=== PATIENT | female | born 1945 | race Caucasian/White ===

== ENCOUNTER 2017-07-14 18:06 | Inpatient (IN) | payer MEDICARE, BC ==
[2017-07-14] MEDS ORDERED: Meropenem 1 GM in Sodium Chloride 0.9% 100 ML IVPB ONE (18:45)
[2017-07-14 19:30] LABS: CKMB 4.3 ng/mL (0-6.6); Troponin I 0.029 ng/mL (< 0.028)
[2017-07-14] MEDS ORDERED: Ondansetron HCl/PF 4 MG/2 ML Vial IVP PRN ×2 (21:51→22:24)
[2017-07-14] MEDS ORDERED: Ondansetron ODT 4 MG TAB SL PRN (21:51)
[2017-07-14] MEDS ORDERED: Sodium Chloride 0.9% 1,000 ML IV SCH (22:00)
[2017-07-14] MEDS ORDERED: Acetaminophen 325 MG TAB PO PRN (22:24)
[2017-07-14] MEDS ORDERED: Guaifenesin DM 100-10/5 ML UDCUP PO PRN (22:24)
[2017-07-14] MEDS ORDERED: Albuterol Sulfate 1.25 MG/3 ML NEB NEB PRN (22:24)
[2017-07-14] MEDS ORDERED: Ondansetron ODT 4 MG TAB PO PRN (22:24)
[2017-07-14] MEDS ORDERED: Cefepime 2 GM in Sodium Chloride 0.9% 100 ML IVPB SCH (22:24)
[2017-07-14] MEDS ORDERED: HYDROcodone/Acetaminophen 5/325 mg Tablet PO PRN (22:24)
[2017-07-14] MEDS ORDERED: ALPRAZolam 0.5 MG TAB PO SCH (22:45)
[2017-07-14] MEDS ORDERED: guaiFENesin ER 600 MG TAB PO SCH (22:45)
[2017-07-14] MEDS ORDERED: Famotidine 20 MG TAB PO SCH (22:45)
[2017-07-14] MEDS ORDERED: Gabapentin 300 MG CAP PO SCH (23:00)
[2017-07-14] MEDS ORDERED: Cefepime 2 GM, Syringe 2.5 ML in Sodium Chloride 0.9% 10 ML SLOW IVP SCH (23:00)
[2017-07-14] MEDS: Sodium Chloride 0.9% 1,000 ML IV SCH (23:22)
[2017-07-15] MEDS: traZODone HCl 50 MG TAB PO PRN ×2 (00:24→20:25)
[2017-07-15 01:20] VITALS: BMI 26.8
[2017-07-15] MEDS: Meropenem 1 GM in Sodium Chloride 0.9% 100 ML IVPB SCH ×3 (03:48→22:03)
[2017-07-15] MEDS ORDERED: Meropenem 1 GM in Sodium Chloride 0.9% 100 ML IVPB SCH (04:00)
[2017-07-15 06:12] LABS: Band 22 % (5-11); Hemoglobin 10.4 g/dL (12.0-16.0); Lymphocytes 2 % (21-51); MDiff Complete? YES; Mean Corpuscular HGB CONC 33.7 g/dL (32.0-36.0); Mean Platelet Volume 7.7 fL (7.4-10.4); Metamyelocyte 1 % (0-0); Monocytes 3 % (0-10); Neutrophil 71 % (42-75); Platelet Count 142 thou/uL (130-400); RBC Distribution Width 12.6 % (11.5-14.5); Red Blood Cell (RBC) Count 3.06 mill/uL (4.20-5.40); White Blood Cell (WBC) Count 10.8 thou/uL (4.8-10.8)
[2017-07-15 06:23] LABS: ALT (SGPT) 19 U/L (8-55); AST (SGOT) 25 U/L (5-34); Albumin 2.9 g/dL (3.4-4.8); Alkaline Phosphatase 89 U/L (40-150); Anion Gap 12 mmol/L (10-20); BUN (Urea Nitrogen) 19 mg/dL (9.8-20.1); Bilirubin, Total 0.6 mg/dL (0.2-1.2); Calc. Creatinine Clearance 61 mL/min (70-130); Calcium 7.9 mg/dL (7.8-10.44); Carbon Dioxide 17 mmol/L (23-31); Chloride 111 mmol/L (98-107); Estimated GFR-MDRD 70; Globulin 2.5 g/dL (2.4-3.5); Glucose 72 mg/dL (83-110); Magnesium 1.5 mg/dL (1.6-2.6); Potassium 3.6 mmol/L (3.5-5.1); Protein, Total 5.4 g/dL (6.0-8.3); Sodium 136 mmol/L (136-145)
--- NOTE | 2017-07-15 08:38 | RAD ---
PORTABLE CHEST: Date: 07/15/17 HISTORY: Sepsis and cough. COMPARISON: 07/14/17. FINDINGS: There are increased left perihilar markings when compared to the earlier exam. I cannot exclude devel oping perihilar pneumonitis. No focal consolidation. No other evidence of infiltrate. There is a righ t jugular catheter which has tip overlying the SVC and appears in adequate position. IMPRESSION: Question increased left perihilar markings when compared to the earlier film. Continued follow-up rec ommended. POS: [facility]
--- NOTE | 2017-07-15 08:44 | HP ---
DATE OF ADMISSION: 07/14/2017 TIME OF SERVICE: 1930. PRIMARY CARE PHYSICIAN: Dr. Clarita Morrison. CHIEF COMPLAINT: Transferred from an outside facility for sepsis. HISTORY OF PRESENT ILLNESS: Ms. Quiroga is a 72-year-old female with past medical history of brain aneurysm requiring recurrent procedures starting back in 1999. She developed left-sided hemiplegia and contractures because of that. She was presented to the [facility] today for temperatures at home of 103.7, confirmed 102 to 102.9 there. She had nausea and vomiting for about 48 hours prior to presentation that began abruptly and continued to have diarrhea, though it is slowed down. She was seen in the emergency department, she was given 2 liters of IV fluids at [facility], levofloxacin and meropenem and transferred here. Here the findings were confirmed, we were called to admit. Currently, patient is tachycardic, but regular. She has got a systolic pressure in the mid 90s, which she says is her baseline. She has some shortness of breath and congestion for the last few days and has been using nebulizer treatments and Mucinex at home. She denies any shaking, chills, or rigors until today. She denies any nausea today, but did have when her diarrheal illness initially started. She had no chest pain, no GI bleeding. PAST MEDICAL HISTORY: 1. Asthma. 2. Recurrent urinary tract infections last in 02/2016. Last few germs have been E. coli or gram-negative that had been minimally resistant. 3. 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 PAST SURGICAL HISTORY: 1. Aneurysmal coiling in 1999. 2. Aneurysmal clip in 2001. 3. LACING CUTTER shunt and revision x3, the last revision in 2006. 4. Hysterectomy. 5. Bilateral cataract replacement. HOME MEDICATIONS: 1. Gabapentin 300 mg p.o. q.p.m. 2. Xanax 0.5 mg p.o. at bedtime. 3. Levothyroxine 88 mcg daily. 4. Zofran not taking any more. 5. Omeprazole 20 mg p.o. daily. 6. Melatonin, she is not taking any more. 7. Mucinex as needed. 8. Trazodone 100 mg p.o. at bedtime. 9. Vitamin E 400 units daily. 10. DuoNeb one-half vial b.i.d. 11. Albuterol MDI 2 puffs as needed. ALLERGIES: KEFLEX causes hives. She does not recall having a ROCEPHIN or CEFEPIME before. FAMILY HISTORY: Negative for clotting or bleeding disorder, no immune dysfunction. No recent travel. Dad had multiple family members with short course of diarrheal illnesses recently. SOCIAL HISTORY: Significant for tobacco. She continues to smoke about half pack per day for the last 30+ years. She is actually craving on cigarette right now. I asked her about a nicotine patch, her daughter informed that she will be taking it off her, she could reach it and putting into mouth and chew it to get more nicotine out. She is otherwise negative for alcohol or IV drugs. The patient wishes to be a DNR. She does not want to be intubated, does not want any chest compressions, does not want any cardioversion or shocks. Vasopressors were okay and BiPAP absolutely necessary otherwise, no interventions. Her daughter, Cheryl Andrews is her medical decision maker and if she becomes incapacitated, her phone number was [phone]. REVIEW OF SYSTEMS: A 10-point review of systems was performed and is negative for all systems except as stated as per HPI. PHYSICAL EXAMINATION: VITAL SIGNS: Temperature 99.3, pulse 112, blood pressure 96/65, respiratory rate 15, satting 94% on room air. GENERAL: She is awake. She is alert. She is oriented x3. She is an age- appropriate appearing white female who is in no acute distress. HEENT: Normocephalic and atraumatic. Pupils equal and reactive bilaterally. She has bilateral pseudophakia. Mucous members are moist. She has no visible lesions. No thrush. NECK: Supple without lymphadenopathy, JVD, or thyromegaly. She had normal carotids upstrokes without bruits. LUNGS: Clear bilaterally. She has good air movement. She has fine bibasilar crackles that seemed to clear after deep inspiration. She has no prolonged expiratory phase. There is no wheezing at present. ABDOMEN: Soft and is nontender, but distended. She is tympanitic. She has tingling bowel sounds present and decreased amounts diffusely. EXTREMITIES: There are no cyanosis, no clubbing. She has got no edema. She has got a left upper extremity contracture and weakness to the left lower extremity. Right side appears normal. SKIN: Warm, moist, well perfused. She has got crepe-like skin consistent with age-related changes. NEUROLOGIC: Cranial nerves II-XII appeared to be grossly intact. She has got contractures above. Right upper and right lower extremities strength is 5/5. She has normal speech pattern. MUSCULOSKELETAL: All joints appeared normal. She has got no inflammation, no palpable effusions. LABORATORY EVALUATION: Sodium is 140, potassium 3.7, chloride 106, bicarbonate 21, BUN 22, creatinine 1.16 last here was 0.69 back in 03/2016, calcium was 9.4 , and glucose was normal. Lactic acid was elevated at 3.2, repeat has not been done yet. Liver functions completely within normal limits. CBC showed a white count of 9.8. She is 83% granulocytes and 12% bands. Hemoglobin is 14.3, hematocrit 37.5, and platelet count 105,000. Her urinalysis showed small leukocyte esterase and 7-10 white cells, 4+ bacteria, positive nitrite. She is flu negative. Chest x-ray showed diffuse interstitial haziness. ASSESSMENT AND PLAN: 1. Severe sepsis: Fever, tachycardia, hypotension, white count with a left shift, and evidence of end-organ disease with elevated lactate 3.2 and a creatinine is doubled her last known value. We will place her on the IMCU, we will continue IV fluids that she has already gotten appropriate bolus. She appears to be at her normal blood pressure but is tachycardic still. Her presumed source include urine and lung; although, her lungs do sound clear. We will cover with cefepime and levofloxacin for now, and we will follow up on cultures. In the meantime, we will continue DuoNebs q.6 hours and we will have albuterol as needed in between. Repeat a morning chest x-ray. 2. Asthma: As above. 3. History of cerebrovascular disease status post cerebrovascular accident in the past, appears to be stable at present. 4. Acute gastroenteritis. She had an onset of acute diarrheal illness. It should be viral as passing from family member to family member. She has not been on any recent antibiotics. 5. Hypothyroidism. We will continue levothyroxine. 6. Gastroesophageal reflux disease. We will continue omeprazole. 7. Insomnia. We will continue her Ativan at bedtime. [facility]
[2017-07-15] MEDS ORDERED: Prevnar 13-Val Conj/PF 0.5 ML SYRINGE IM ONE (09:00)
[2017-07-15] MEDS: Famotidine 20 MG TAB PO SCH ×2 (09:23→20:25)
[2017-07-15] MEDS: Sodium Chloride 0.9% 1,000 ML IV SCH (09:23)
[2017-07-15] MEDS: guaiFENesin ER 600 MG TAB PO SCH ×2 (09:24→20:25)
--- NOTE | 2017-07-15 13:12 | RAD ---
PORTABLE CHEST ONE VIEW: Date: 07-15-17 Time: 12:00 p.m. History: CHF. FINDINGS/IMPRESSION: The heart size is stable. The aorta is tortuous. Prominent left perihilar markings are again seen. No pneumothoraces or large effusions are identified. POS: OFF
--- NOTE | 2017-07-15 13:27 | PRG ---
DATE OF SERVICE: 07/15/2017 This is a 72-year-old female who suddenly became acutely short of breath, diaphoretic, cyanotic. [place] se noticed her sats dropped in the 70s. A stat chest x-ray was obtained which may show now some evid ence of increasing infiltrate on the left side. She was placed on a BiPAP, 10/5 with a rate of 10, 5 0%, 90. She got better. She has got extensive crackles and rhonchi in the left lung, right lung unr emarkable. CARDIAC: Normal S1-S2. No gallops. ABDOMEN: No masses. X-ray shows worsening left-sided infiltrate. She was unable to move her left upper extremity. Ther e is a line in the left chest, probably skin fold, I doubt is a pneumothorax. Though she has a cent ral line in place on the left side. I discussed with the patient's daughter who is to come shortly to see her mother. She is a DNR, but she wants to be placed on ventilation. IMPRESSION: 1. Respiratory failure. 2. Pneumonia. 3. Urosepsis. PLAN: I have added steroids to her present neb treatments. Continue supportive care. Will follow. Once again, she is not to be intubated as per the family's wishes. This is one-half hour critical care time.
--- NOTE | 2017-07-15 13:54 | PDOC.PN ---
- Subjective Encounter Start Date: 07/15/17 Encounter Start Time: 14:00 Subjective: Patient with respiratory distress earlier today, put on Bipap, doing better -: now. No complaints. - Objective Resuscitation Status: Resuscitation Status DNR:Do Not Resuscitate MAR Reviewed: Yes Vital Signs & Weight: Vital Signs (12 hours) Temp Pulse Resp BP Pulse Ox 07/15/17 12:07 97.9 F 79 24 H 106/58 L 97 07/15/17 08:16 89 16 97 07/15/17 08:14 99.9 F H 88 24 H 99/59 L 98 07/15/17 08:00 99.9 F H 88 24 H 98 07/15/17 03:50 98.0 F 94 28 H 104/57 L 100 Weight Weight 135 lb 3.2 oz I&O: 07/14/17 07/15/17 07/16/17 06:59 06:59 06:59 Intake Total 1000 Balance 1000 Result Diagrams: 07/15/17 04:48 07/15/17 04:48 Phys Exam - Physical Examination Constitutional: NAD HEENT: moist MMs Respiratory: no wheezing, no rhonchi few rales in left lung Cardiovascular: RRR, no significant murmur Gastrointestinal: soft, positive bowel sounds Musculoskeletal: no edema Neurological: non-focal, moves all 4 limbs Psychiatric: normal affect Dx/Plan (1) Severe sepsis Code(s): A41.9 - SEPSIS, UNSPECIFIED ORGANISM; R65.20 - SEVERE SEPSIS WITHOUT SEPTIC SHOCK Status: Acute Comment: Blood cultures ordered in [place], though I don't see any results or pending studies in the computer (2) UTI (urinary tract infection) Status: Acute (3) Pneumonia Code(s): J18.9 - PNEUMONIA, UNSPECIFIED ORGANISM Status: Acute (4) Asthma Code(s): J45.909 - UNSPECIFIED ASTHMA, UNCOMPLICATED Status: Chronic (5) CVA (cerebrovascular accident) Code(s): I63.9 - CEREBRAL INFARCTION, UNSPECIFIED Status: Chronic (6) Acute hypoxemic respiratory failure Code(s): J96.01 - ACUTE RESPIRATORY FAILURE WITH HYPOXIA Status: Acute Comment: On Bipap, suspect fluid overload from resuscitation. Will saline lock fluids. Monitor closely. - Plan cont current plan of care, continue antibiotics, PT/OT Confirmed with patient and family that patient is DNR and doesn't want -: intubation. * . - Discharge Day Encounter end time: 14:20
--- NOTE | 2017-07-15 14:00 | PQF ---
DATE: 07-15-17 ATTN: DR. MARKEL MENJIVAR Please exercise your independent, professional judgment in responding to the clarification form. Clinical indicators are provided on the bottom of this form for your review Please check appropriate box(s): [ X ] UTI [ ] Contaminated urine specimen without UTI [ ] Other diagnosis [ ] Unable to determine In addition, please specify: Present on Admission (POA): [ X ] Yes [ ] No [ ] Unable to determine For continuity of documentation, please document condition throughout progress notes and discharge summary. Thank You. CLINICAL INDICATORS - SIGNS / SYMPTOMS / LABS ER DOCUMENTATION: HX OF FREQUENT UTI'S, UA WAS POSITIVE FOR NITRITES AND SENT FOR CULTURE, [facility] WAS CONTACTED AT THIS TIME BY ME ABOUT A URINE C&S. JITENDRA LEON SHABNAM SHE WILL ORDER THIS AT THAT FACILITY. ER DX: SEPSIS, UTI H&P: HER URINALYSIS SHOWED SMALL LEUKOCYTE ESTERASE AND 7-10 WHITE CELLS, 4+ BACTERIA, POSITIVE NITRITE. SEVERE SEPSIS. HER PRESUMED SOURCE INCLUDE URINE AND LUNG, ALTHOUGH , HER LUNGS ARE CLEAR. TEMP ( ER) 102.9 RISK FACTORS: ER DOCUMENTATION: HX OF FREQUENT UTI'S, UA WAS POSITIVE FOR NITRITES AND SENT FOR CULTURE, [facility] WAS CONTACTED AT THIS TIME BY ME ABOUT A URINE C&S. JITENDRA HAQUE SHE WILL ORDER THIS AT THAT FACILITY. TREATMENT: (MAR) MEROPENEM, IVF (This form is maintained as a part of the permanent medical record) 2014 [email or web address]. All Rights Reserved CAROLYN [email or web address] Office: [phone] [facility]
--- NOTE | 2017-07-15 14:51 | CON ---
DATE OF CONSULTATION: 07/15/2017 HISTORY OF PRESENT ILLNESS: This is a 72-year-old female status post CVA who was admitted to the [facility] last night with apparently confusion, febrile illness, presumed sepsis. She has a left-sided weakness following a CVA, brain aneurysm. Apparently her temperature was 103. She apparently had nausea and vomiting per the history. She was given 2 liters of fluid in [place]. She is a former smoker. It is unclear whether she is still smoking. Reports from [place] states th at she has had a cough on 07/14/2017 with a temperature up to 103.9. Chills and sweats, several days of nausea and vomiting. PAST MEDICAL HISTORY: Brain aneurysm in 1999, COPD, tobacco abuse, a left-sided cerebrovascular acci dent. PAST SURGICAL HISTORY: Hysterectomy, a shunt, cerebral. TOBACCO: Tobacco as noted is still smoking. She wants Chantix. MEDICATIONS: Apparently includes trazodone 100, , Synthroid 88, gabapentin 300, Xanax 0.5. Since admission, now she is started on DuoNeb and meropenem. ALLERGIES: KEFLEX. SOCIAL/FAMILY HISTORY: Tobacco as noted, still smoking. Alcohol none. REVIEW OF SYSTEMS: Ten point negative. I reviewed all the x-rays and reports. PHYSICAL EXAMINATION: VITAL SIGNS: O2 sat 97% on 2 liters, temperature is 99, blood pressure 99/57, improved. CHEST: Decreased breath sounds, no wheezing. CARDIAC: Normal S1, S2. ABDOMEN: Soft, no masses. White count 10,000 with 71 segs, no left shift. H&H is normal, 10 and 30, platelet count 142. Elect rolytes are normal. BNP is unremarkable. Troponin is slightly elevated. Cultures so far are negati ve. LABORATORY AND X-RAY FINDINGS: Chest x-ray, I do not see any acute infiltrates. She had E. coli in the urine several years ago, sensitive to all the antibiotics. IMPRESSION: 1. Possibly urosepsis. 2. Chronic obstructive pulmonary disease. 3. Possible pneumonia. 4. A left-sided cerebrovascular accident. 5. Brain aneurysm. PLAN: She is on meropenem, neb treatment, supportive care. I will follow while in the IMCU. Nutrit ion and PT. Consultation note, 70 minutes, 50% spent in direct patient care.
[2017-07-15] MEDS ORDERED: [UNRECOGNIZED DRUG - REMARK] FS SCH (17:45)
[2017-07-15] MEDS: Nicotine 21 MG PATCH TOP SCH (20:24)
[2017-07-15] MEDS: ALPRAZolam 0.5 MG TAB PO SCH (20:25)
[2017-07-15] MEDS: Gabapentin 300 MG CAP PO SCH (20:25)
[2017-07-16] MEDS: Meropenem 1 GM in Sodium Chloride 0.9% 100 ML IVPB SCH ×3 (05:17→21:33)
--- NOTE | 2017-07-16 09:06 | PRG ---
DATE OF SERVICE: 07/16/2017 This morning she is awake, responsive, in no distress. PHYSICAL EXAMINATION: VITAL SIGNS: Blood pressure 140/86, sats are 99 on room air, temperature 97, pulse 78, respirations 18. CHEST: No wheezing or crackles. CARDIAC: Normal S1, S2. No gallops. ABDOMEN: Soft, no mass. When she had respiratory distress yesterday a chest x-ray showed a questionable left perihilar infilt rate. IMPRESSION: 1. Pneumonia. 2. Hypertension. 3. Possibly sepsis. 4. Probably UTI. PLAN: She is on broad spectrum on meropenem and steroids, nebs treatment. If cultures are negative tomorrow we will deescalate antibiotics. She has multiple allergies to CEPH ALEXIN, KEFLEX, etc. PT, nutrition. I will follow.
[2017-07-16] MEDS: guaiFENesin ER 600 MG TAB PO SCH ×2 (09:13→21:32)
[2017-07-16] MEDS: Famotidine 20 MG TAB PO SCH ×2 (09:28→21:35)
--- NOTE | 2017-07-16 10:29 | PDOC.PN ---
- Subjective Encounter Start Date: 07/16/17 Encounter Start Time: 15:25 Subjective: Patient feeling better today. SOB improved. No need for Bipap -: since yesterday. Some confusion this AM. None when I saw her just now. - Objective Resuscitation Status: Resuscitation Status DNR:Do Not Resuscitate MAR Reviewed: Yes Vital Signs & Weight: Vital Signs (12 hours) Temp Pulse Resp BP Pulse Ox 07/16/17 07:53 97.3 F L 72 18 144/86 H 99 07/16/17 07:34 70 20 95 07/16/17 04:00 98.6 F 73 18 136/68 96 07/16/17 00:00 98.3 F 80 20 130/68 93 L 07/15/17 23:42 74 16 96 Weight Weight 129 lb 9 oz I&O: 07/15/17 07/16/17 07/17/17 06:59 06:59 06:59 Intake Total 1000 2330 Balance 1000 2330 Result Diagrams: 07/16/17 13:23 07/16/17 13:23 Phys Exam - Physical Examination Constitutional: NAD HEENT: moist MMs Respiratory: no wheezing, no rales, no rhonchi Cardiovascular: RRR, no significant murmur Gastrointestinal: soft, positive bowel sounds Neurological: non-focal, moves all 4 limbs Psychiatric: normal affect, A&O x 3 Dx/Plan (1) Severe sepsis Code(s): A41.9 - SEPSIS, UNSPECIFIED ORGANISM; R65.20 - SEVERE SEPSIS WITHOUT SEPTIC SHOCK Status: Resolved Comment: Blood cultures ordered in [place], though I don't see any results or pending studies in the computer (2) UTI (urinary tract infection) Status: Acute (3) Pneumonia Code(s): J18.9 - PNEUMONIA, UNSPECIFIED ORGANISM Status: Acute (4) Asthma Code(s): J45.909 - UNSPECIFIED ASTHMA, UNCOMPLICATED Status: Chronic (5) CVA (cerebrovascular accident) Code(s): I63.9 - CEREBRAL INFARCTION, UNSPECIFIED Status: Chronic (6) Acute hypoxemic respiratory failure Code(s): J96.01 - ACUTE RESPIRATORY FAILURE WITH HYPOXIA Status: Acute Comment: On Bipap, suspect fluid overload from resuscitation. Will saline lock fluids. Monitor closely. - Plan cont current plan of care, continue antibiotics, PT/OT, DVT proph w/SCDs * . - Discharge Day Encounter end time: 15:35
[2017-07-16 13:54] LABS: Anion Gap 12 mmol/L (10-20); BUN (Urea Nitrogen) 17 mg/dL (9.8-20.1); Calc. Creatinine Clearance 60 mL/min (70-130); Calcium 8.9 mg/dL (7.8-10.44); Carbon Dioxide 19 mmol/L (23-31); Chloride 111 mmol/L (98-107); Estimated GFR-MDRD 73; Glucose 212 mg/dL (83-110); Potassium 3.8 mmol/L (3.5-5.1); Sodium 138 mmol/L (136-145)
[2017-07-16 14:30] LABS: Band 13 % (5-11); Hemoglobin 12.1 g/dL (12.0-16.0); Lymphocytes 3 % (21-51); MDiff Complete? YES; Mean Corpuscular HGB CONC 34.4 g/dL (32.0-36.0); Mean Corpuscular Hemoglobin 34.2 pg (27.0-31.0); Mean Corpuscular Volume 99.3 fl (81.0-99.0); Mean Platelet Volume 8.7 fL (7.4-10.4); Monocytes 2 % (0-10); Neutrophil 82 % (42-75); PLT Morphology Comment Appears Adequate; Platelet Count 132 thou/uL (130-400); RBC Distribution Width 12.8 % (11.5-14.5); Red Blood Cell (RBC) Count 3.55 mill/uL (4.20-5.40)
[2017-07-16] MEDS ORDERED: Fluconazole 100 MG TAB PO SCH (15:30)
[2017-07-16] MEDS: Gabapentin 300 MG CAP PO SCH (21:33)
[2017-07-16] MEDS: Nicotine 21 MG PATCH TOP SCH (21:33)
[2017-07-16] MEDS: ALPRAZolam 0.5 MG TAB PO SCH (21:33)
[2017-07-16] MEDS ORDERED: Metoprolol Tartrate 5 MG/5 ML VIAL IVP SCH (23:00)
[2017-07-17] MEDS: Meropenem 1 GM in Sodium Chloride 0.9% 100 ML IVPB SCH (03:21)
[2017-07-17 06:43] LABS: Anion Gap 10 mmol/L (10-20); BUN (Urea Nitrogen) 23 mg/dL (9.8-20.1); Calc. Creatinine Clearance 64 mL/min (70-130); Calcium 8.9 mg/dL (7.8-10.44); Carbon Dioxide 23 mmol/L (23-31); Chloride 111 mmol/L (98-107); Estimated GFR-MDRD 79; Glucose 163 mg/dL (83-110); Potassium 3.6 mmol/L (3.5-5.1); Sodium 140 mmol/L (136-145)
[2017-07-17 06:44] LABS: Band 8 % (5-11); Hemoglobin 10.3 g/dL (12.0-16.0); Lymphocytes 4 % (21-51); MDiff Complete? YES; Mean Corpuscular HGB CONC 33.8 g/dL (32.0-36.0); Mean Corpuscular Hemoglobin 33.2 pg (27.0-31.0); Mean Corpuscular Volume 98.2 fl (81.0-99.0); Mean Platelet Volume 8.4 fL (7.4-10.4); Monocytes 2 % (0-10); Neutrophil 86 % (42-75); Platelet Count 152 thou/uL (130-400); RBC Distribution Width 12.8 % (11.5-14.5); Red Blood Cell (RBC) Count 3.11 mill/uL (4.20-5.40); White Blood Cell (WBC) Count 13.6 thou/uL (4.8-10.8)
--- NOTE | 2017-07-17 08:46 | RAD ---
CHEST 1 VIEW: COMPARISON: 07/15/17. HISTORY: Congestive heart failure. FINDINGS: Redemonstration of a GLASS CRUSHER shunt catheter projecting over the right neck and right hemithorax. Heart is enlarged. There is atherosclerosis of the aorta. The pulmonary vessels are slightly prominent. St able diffuse reticulonodular opacities with patchy alveolar opacities in the left hilum. Small left- sided pleural effusion. Lungs are hyperinflated. No pneumothorax. There is diffuse bone deminerali zation. IMPRESSION: 1. Congestive heart failure. 2. Atherosclerosis of the aorta. Continued surveillance. POS: [facility]
[2017-07-17] MEDS: Famotidine 20 MG TAB PO SCH ×2 (09:01→20:25)
[2017-07-17] MEDS: Doxycycline 100 MG CAP PO SCH ×2 (09:01→20:24)
[2017-07-17] MEDS: guaiFENesin ER 600 MG TAB PO SCH ×2 (09:02→20:24)
[2017-07-17] MEDS: Fluconazole 100 MG TAB PO SCH (09:02)
--- NOTE | 2017-07-17 10:25 | PRG ---
DATE OF SERVICE: 07/17/2017 SUBJECTIVE: This morning, she is better. She is eating breakfast. X-ray shows a left-sided infiltr ate. OBJECTIVE: VITAL SIGNS: Respiratory rate is 38, temperature 97, blood pressure 126/61. LUNGS: She has crackles. CARDIAC: Normal S1, S2. No gallops. ABDOMEN: Soft. No masses. LABORATORY DATA: Electrolytes are normal. White count 13,000, H&H is 10 and 30. IMPRESSION: 1. Left-sided pneumonia. 2. Cerebrovascular accident. PLAN: Cultures so far negative. I am going to switch her over to oral antibiotic. Oral prednisone. Hopefully, she can be discharged home in the next 24-48 hours.
--- NOTE | 2017-07-17 14:29 | PDOC.PN ---
- Subjective Encounter Start Date: 07/17/17 Encounter Start Time: 13:00 Patient is seen today, alert but disoriented. She remains hypoxic and per daughter she is very confused. - Objective Resuscitation Status: Resuscitation Status DNR:Do Not Resuscitate MAR Reviewed: Yes Vital Signs & Weight: Vital Signs (12 hours) Temp Pulse Pulse Pulse Resp BP BP 07/17/17 12:00 98 F 75 32 H 07/17/17 10:33 61 61 130/52 L 129/63 07/17/17 08:04 97.8 F 75 38 H 07/17/17 08:00 97.8 F 75 38 H 07/17/17 07:28 73 20 07/17/17 03:48 98.2 F 80 18 BP Pulse Ox Pulse Ox Pulse Ox 07/17/17 12:00 130/64 100 07/17/17 10:33 98 96 07/17/17 08:04 126/61 100 07/17/17 08:00 92 L 07/17/17 07:28 100 07/17/17 03:48 144/76 H 95 Weight Weight 128 lb 8 oz I&O: 07/16/17 07/17/17 07/18/17 06:59 06:59 06:59 Intake Total 2330 1315 Balance 2330 1315 Result Diagrams: 07/17/17 06:17 07/17/17 06:17 Radiology Reviewed by me: Yes Phys Exam - Physical Examination HEENT: PERRLA, moist MMs Neck: no nodes, no JVD Respiratory: no wheezing, no rales Cardiovascular: RRR, no significant murmur Gastrointestinal: soft, non-tender Neurological: non-focal Lymphatic: no nodes Psychiatric: normal affect Dx/Plan (1) Acute hypoxemic respiratory failure Code(s): J96.01 - ACUTE RESPIRATORY FAILURE WITH HYPOXIA Status: Acute Comment: On nasal canula,, suspect fluid overload from resuscitation. Will saline lock fluids. Monitor closely. (2) Pneumonia Code(s): J18.9 - PNEUMONIA, UNSPECIFIED ORGANISM Status: Acute Comment: Patient is seen today, alert and but remains disoireintd. Continue Po antibitoics per Pulmonary, transfer to floors. (3) UTI (urinary tract infection) Status: Acute Comment: Likely cause for AMS. (4) Asthma Code(s): J45.909 - UNSPECIFIED ASTHMA, UNCOMPLICATED Status: Chronic (5) Severe sepsis Code(s): A41.9 - SEPSIS, UNSPECIFIED ORGANISM; R65.20 - SEVERE SEPSIS WITHOUT SEPTIC SHOCK Status: Resolved Comment: Blood cultures ordered in [place], though I don't see any results or pending studies in the computer - Plan cont current plan of care, PT/OT, group social worker, respiratory therapy, incentive spirometry, DVT proph w/lovenox * . - Discharge Day Encounter end time: 13:35 Review of Systems - Review of Systems Eyes: negative: Pain, Vision Change, Conjunctivae Inflammation, Eyelid Inflammation, Redness, Other ENT: negative: Ear Pain, Ear Discharge, Nose Pain, Nose Discharge, Nose Congestion, Mouth Pain, Mouth Swelling, Throat Pain, Throat Swelling, Other Respiratory: negative: Cough, Dry, Shortness of Breath, Hemoptysis, SOB with Excertion, Pleuritic Pain, Sputum, Wheezing Cardiovascular: negative: chest pain, palpitations, orthopnea, paroxysmal nocturnal dyspnea, edema, light headedness, other Gastrointestinal: negative: Nausea, Vomiting, Abdominal Pain, Diarrhea, Constipation, Melena, Hematochezia, Other - Medications/Allergies Allergies/Adverse Reactions: Allergies Allergy/AdvReac Type Severity Reaction Status Date / Time cephalexin Allergy Verified 06/08/15 17:55 cephalexin monohydrate Allergy Verified 06/08/15 17:55 [From Keflex] chocolate flavor Allergy Verified 07/15/17 07:30 Medications: Current Medications Acetaminophen (Tylenol) 650 mg PO Q4H PRN PRN Reason: Headache/Fever or Pain Last Admin: 07/15/17 09:24 Dose: 650 mg Hydrocodone Bitart/Acetaminophen ([place] 5/325) 1 tab PO Q4H PRN PRN Reason: Moderate Pain (4-6) Albuterol Sulfate (Albuterol Sulfate) 1.25 mg NEB Q2H PRN PRN Reason: Wheezing Albuterol/Ipratropium (Duoneb) 3 ml NEB [id number] NATALIIA Last Admin: 07/17/17 07:28 Dose: 3 ml Alprazolam (Xanax) 0.5 mg PO HS NATALIIA Last Admin: 07/16/17 21:33 Dose: 0.5 mg Diltiazem HCl (Cardizem) 60 mg PO Q6HR NATALIIA Last Admin: 07/17/17 13:04 Dose: 60 mg Doxycycline Hyclate (Vibramycin) 100 mg PO BID [facility] Last Admin: 07/17/17 09:01 Dose: 100 mg Famotidine (Pepcid) 20 mg PO BID [facility] Last Admin: 07/17/17 09:01 Dose: 20 mg Fluconazole (Diflucan) 100 mg PO DAILY [facility] Last Admin: 07/17/17 09:02 Dose: 100 mg Gabapentin (Neurontin) 300 mg PO HS [facility] Last Admin: 07/16/17 21:33 Dose: 300 mg Guaifenesin (Mucinex) 1,200 mg PO Q12HR [facility] Last Admin: 07/17/17 09:02 Dose: 1,200 mg Guaifenesin/Dextromethorphan (Robitussin Dm) 15 ml PO Q4H PRN PRN Reason: Cough Nicotine (Nicoderm Patch) 21 mg TOP Q24HR [facility] Last Admin: 07/16/17 21:33 Dose: 21 mg Ondansetron HCl (Zofran Odt) 4 mg PO Q6H PRN PRN Reason: Nausea/Vomiting Ondansetron HCl (Zofran) 4 mg IVP Q6H PRN PRN Reason: Nausea/Vomiting Prednisone (Prednisone) 20 mg PO QAM-[facility] Trazodone HCl (Desyrel) 100 mg PO HSPRN PRN PRN Reason: Insomnia Last Admin: 07/15/17 20:25 Dose: 100 mg
[2017-07-17] MEDS: Nicotine 21 MG PATCH TOP SCH (20:24)
[2017-07-17] MEDS: ALPRAZolam 0.5 MG TAB PO SCH (20:24)
[2017-07-17] MEDS: Gabapentin 300 MG CAP PO SCH (20:25)
--- NOTE | 2017-07-18 08:43 | PRG ---
DATE OF SERVICE: 07/18/2017 This morning, awake, alert, responsive. She ate all her breakfast. PHYSICAL EXAMINATION: VITAL SIGNS: Respirations 16, O2 sat 96%, temperature 97, blood pressure 140/78. CHEST: Chest reveals no wheezing. CARDIAC: Normal S1, S2. ABDOMEN: Soft, no masses. IMPRESSION: 1. Left-sided pneumonia. 2. Sinusitis. 3. Urinary tract infection. 4. Cerebrovascular accident. PLAN: She appears to be stable, probably could be discharged back to the [facility]. Antibiotics for a week, prednisone for a week. Supportive care.
[2017-07-18] MEDS: guaiFENesin ER 600 MG TAB PO SCH ×2 (08:53→21:18)
[2017-07-18] MEDS: Doxycycline 100 MG CAP PO SCH ×2 (08:53→21:18)
[2017-07-18] MEDS: Fluconazole 100 MG TAB PO SCH (08:53)
[2017-07-18] MEDS: predniSONE 20 MG TAB PO SCH (08:53)
[2017-07-18] MEDS: Famotidine 20 MG TAB PO SCH ×2 (08:54→21:18)
--- NOTE | 2017-07-18 11:37 | PDOC.PN ---
- Subjective Encounter Start Date: 07/18/17 Encounter Start Time: 11:34 Ms. Quiroga was seen today in follow-up of altered mental status. She does not have any complaints this morning. She is making jokes, and seem to possibly be close to her baseline. She thought she was in the [facility], but was quickly re-oriented, and says they say I have UTI and Pneumonia. - Objective Resuscitation Status: Resuscitation Status DNR:Do Not Resuscitate MAR Reviewed: Yes Vital Signs & Weight: Vital Signs (12 hours) Temp Pulse Resp BP Pulse Ox 07/18/17 11:20 97.8 F 60 18 140/61 100 07/18/17 08:41 62 20 07/18/17 08:00 97.9 F 62 20 146/70 H 90 L 07/18/17 04:47 97.0 F L 59 L 16 144/78 H 96 07/18/17 00:01 97.4 F L 59 L 17 139/61 98 Weight Weight 128 lb 8 oz I&O: 07/17/17 07/18/17 07/19/17 06:59 06:59 06:59 Intake Total 1315 660 Balance 1315 660 Result Diagrams: 07/17/17 06:17 07/17/17 06:17 Phys Exam - Physical Examination HEENT: PERRLA Respiratory: no wheezing, no rales, no rhonchi, clear to auscultation bilateral Cardiovascular: RRR, no significant murmur, no rub Gastrointestinal: soft, non-tender, no distention, positive bowel sounds Musculoskeletal: no edema Dx/Plan (1) Acute metabolic encephalopathy Code(s): G93.41 - METABOLIC ENCEPHALOPATHY Status: Acute (2) Atrial fibrillation Code(s): I48.91 - UNSPECIFIED ATRIAL FIBRILLATION Status: Acute (3) Pneumonia Code(s): J18.9 - PNEUMONIA, UNSPECIFIED ORGANISM Status: Acute Comment: Patient is seen today, alert and but remains disoireintd. Continue Po antibitoics per Pulmonary, transfer to floors. (4) UTI (urinary tract infection) Status: Acute Comment: Likely cause for AMS. - Plan * Acute metabolic encephalopathy- improving- she has been changed to Doxycycline - and oral steroids * Her daughter was concerned that she continues to have some residual alteration in her mental status, however she has not yet seen her today, and tells me over the phone she is on her way to the hospital- but she would like her [employer] shunt to be assessed.- will consult Neuro-surgery * AFIB- she has converted to sinus- she is on Cardizem orally- continue Cardizem , and will discuss anticoagulation ect. with her daughter today when she arrives * COPD- improved * Hopefully back to the [facility] soon..
[2017-07-18] MEDS: ALPRAZolam 0.5 MG TAB PO SCH (21:18)
[2017-07-18] MEDS: Gabapentin 300 MG CAP PO SCH (21:18)
[2017-07-19] MEDS ORDERED: Aspirin 81 mg Enteric Coated Tablet PO SCH (09:00)
[2017-07-19] MEDS: guaiFENesin ER 600 MG TAB PO SCH (10:09)
[2017-07-19] MEDS: Fluconazole 100 MG TAB PO SCH (10:09)
[2017-07-19] MEDS: predniSONE 20 MG TAB PO SCH (10:10)
[2017-07-19] MEDS: Famotidine 20 MG TAB PO SCH (10:10)
[2017-07-19] MEDS: Doxycycline 100 MG CAP PO SCH (10:11)
--- NOTE | 2017-07-19 15:34 | PRG ---
DATE OF SERVICE: 07/19/2017 SUBJECTIVE: This morning, awake, responsive, in no distress. OBJECTIVE: VITAL SIGNS: Sats are 91% on room air, temperature 98, pulse 65, respiratory rate of 18, blood press ure 150/96. CHEST: Revealed no wheezing or crackles. CARDIAC: Normal S1, S2, no gallops. IMPRESSION: Pneumonia, urinary tract infection. PLAN: She is stable to be discharged home. Antibiotics, prednisone is tapered.
[2017-07-19 15:58] VITALS: BP 137/71; TEMP 98.3
--- NOTE | 2017-07-19 16:26 | PDOC.PN ---
- Subjective Encounter Start Date: 07/19/17 Encounter Start Time: 16:25 Ms. Quiroga was seen today in follow-up. She does not have any new complaints. - Objective Resuscitation Status: Resuscitation Status DNR:Do Not Resuscitate MAR Reviewed: Yes Vital Signs & Weight: Vital Signs (12 hours) Temp Pulse Resp BP BP Pulse Ox 07/19/17 15:57 98.3 F 69 18 137/71 94 L 07/19/17 14:49 64 20 07/19/17 08:00 98.2 F 65 18 91 L 07/19/17 07:58 98.2 F 65 18 150/96 H 91 L 07/19/17 06:50 88 L 07/19/17 06:48 66 20 88 L Weight Weight 128 lb 8 oz I&O: 07/18/17 07/19/17 07/20/17 06:59 06:59 06:59 Intake Total 660 960 Output Total 4 Balance 660 956 Result Diagrams: 07/17/17 06:17 07/17/17 06:17 Additional Labs: Accuchecks 07/19/17 04:49 POC Glucose 75 Phys Exam - Physical Examination HEENT: PERRLA Respiratory: no wheezing, no rales, no rhonchi, clear to auscultation bilateral Cardiovascular: RRR, no significant murmur, no rub Gastrointestinal: soft, non-tender, positive bowel sounds Musculoskeletal: no edema Dx/Plan (1) Acute metabolic encephalopathy Code(s): G93.41 - METABOLIC ENCEPHALOPATHY Status: Acute (2) Atrial fibrillation Code(s): I48.91 - UNSPECIFIED ATRIAL FIBRILLATION Status: Acute (3) Pneumonia Code(s): J18.9 - PNEUMONIA, UNSPECIFIED ORGANISM Status: Acute Comment: Patient is seen today, alert and but remains disoireintd. Continue Po antibitoics per Pulmonary, transfer to floors. (4) UTI (urinary tract infection) Status: Acute Comment: Likely cause for AMS. - Plan * Pneumonia- clinically improved * UTI also improved * AFIB- her heart rate is stable * Stable for discharge to Rehab.
--- NOTE | 2017-07-19 23:23 | CON ---
DATE OF CONSULTATION: 07/19/2017 HISTORY OF PRESENT ILLNESS: Ms. Quiroga is a 72-year-old woman who has been admitted since 07/14/2017 for sepsis, UTI and altered mental status. She has significantly improved and looks to have cleared her infection and has reached her near baseline status. 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 Rosas and her practice, which was about the fourth or fifth re vision of this shunt by multiple surgeons according to her daughter in the room. Neurosurgery was co nsulted as the family expressed concern over the current functional status of her shunt. So I am see ing her bedside today to evaluate this to me. She is normal appearing. She is alert and oriented x3 . 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 She has mad e a profound improvement overall in her neurologic status to a point where I do not think that there is any concern for a shunt. The valve itself is compressible and refills, and again this is a near b aseline patient as I speak with her at bedside. I do not have any concern. I do not feel that there is any indication for additional imaging at this time and would recommend outpatient follow up in a few months with Dr. Rosas in clinic.
--- NOTE | 2017-07-20 00:03 | DIS ---
DATE OF ADMISSION: 07/14/2017 DATE OF DISCHARGE: 07/19/2017 PRIMARY CARE PHYSICIAN: Clarita Morrison DO DISCHARGE DISPOSITION: Home. PRIMARY DISCHARGE DIAGNOSES: 1. Metabolic encephalopathy secondary to pneumonia and urinary tract infection. 2. Pneumonia. 3. Urinary tract infection. 4. Atrial fibrillation. 5. Generalized deconditioning. DISCHARGE MEDICATIONS: Doxycycline 100 mg twice a day for 5 more days, Cardizem 30 mg 3 times a day, alprazolam 0.5 mg q.8 hours as needed, levothyroxine 88 mcg daily, omeprazole 20 mg daily, prednison e 2 tablets daily, Desyrel 100 mg at bedtime as needed. CODE STATUS: DNR. ALLERGIES: CEPHALEXIN AND CHOCOLATE. HOSPITAL COURSE: Ms. Quiroga is a pleasant 72-year-old female, who presented to the emergency room wit h complaints of shortness of breath and congestion several days prior to admission. She also had a h igh fever at home and was noted to be confused. She was admitted and found to have urinary tract inf ection as well as a pneumonia. The pneumonia is possibly a community-acquired pneumonia as it does n ot appear she has had any recent hospital stays. The patient was treated with IV antibiotics and imp roved over the course of the next few days and due to severe deconditioning, she was transferred to [facility] inpatient rehabilitation facility at [place] and this again is for further treatment and convalescen
== END 2017-07-19 19:23 | DRG 871 ==
LOC: ERS 18:06 → IMCU/EMU 18:51 → T4-A 07-18 18:15
PROVIDERS: ADMIT Internal Medicine Infectious Disease; ATTEND Internal Medicine Infectious Disease
PROC: 5A09357 Assistance with Respiratory Ventilation, Less than 24 Consecutive Hours, Continuous Positive Airway Pressure (ICD-10-PCS; principal; 2017-07-15)
DX: A41.9 Sepsis, unspecified organism (principal); J96.01 Acute respiratory failure with hypoxia; G93.41 Metabolic encephalopathy; J18.9 Pneumonia, unspecified organism; I48.91 Unspecified atrial fibrillation; I69.354 Hemiplegia and hemiparesis following cerebral infarction affecting left non-dominant side; N39.0 Urinary tract infection, site not specified; J44.0 Chronic obstructive pulmonary disease with (acute) lower respiratory infection; M24.50 Contracture, unspecified joint; Z98.2 Presence of cerebrospinal fluid drainage device; F17.210 Nicotine dependence, cigarettes, uncomplicated; Z66 Do not resuscitate; R65.20 Severe sepsis without septic shock; K52.9 Noninfective gastroenteritis and colitis, unspecified
CPT/HCPCS: 36415; 36416; 71045; 80048; 80053; 82553; 83605; 83735; 83880; 84484; 85025; 90471; 90670; 93005; 93010; 94640; 94660; 96361; 96365; G0009; G8978-GP-CM; G8979-GP-CL; G8987-GO-CM; G8988-GO-CL; J0692; J2185; J7050; J7506; J7620

== ENCOUNTER 2017-10-29 14:33 | Outpatient (CLI) | payer MEDICARE, BC ==
--- NOTE | 2017-10-29 15:19 | CT ---
CT HEAD NONCONTRAST: HISTORY: Hydrocephalus. COMPARISON: 10/21/15. FINDINGS: Extensive postoperative changes including right frontoparietal ventriculostomy catheter and hemostasi s clips at the right middle cranial fossa and suprasellar region are similar in appearance to the alia or study. Degree of asymmetric ventricular dilatation is unchanged in appearance. No acute intracra nial hemorrhage is evident. Encephalomalacia in the right frontal lobe adjacent to the ventriculosto my catheter is stable. IMPRESSION: Asymmetric ventricular dilatation, postoperative changes, and other findings are stable. POS: DANN
== END 2017-10-29 14:34 | disposition home or self-care (01) ==
LOC: TBSIIMAG 14:33
PROVIDERS: ATTEND Neurological Surgery
DX: G91.9 Hydrocephalus, unspecified (principal); G93.89 Other specified disorders of brain; Z98.890 Other specified postprocedural states
CPT/HCPCS: 70450